=== PATIENT | female | born 1960 | race Caucasian/White ===

== ENCOUNTER 2016-09-01 16:52 | Emergency (ER) | payer OTHER ==
[~2016-09-01] VITALS: Ht 172.7 cm; Wt 90.7 kg
[2016-09-01 17:00] VITALS: BP 115/76
[2016-09-01] MEDS ORDERED: AMOX875T PO (18:04)
[2016-09-01] MEDS ORDERED: ALBU18HF IH (18:04)
[2016-09-01] MEDS ORDERED: GUAI118L13 PO (18:04)
[2016-09-01] MEDS ORDERED: PRED20TA PO (18:04)
--- NOTE | 2016-09-01 18:07 | PHYS DOC ---
General Chief Complaint: COUGH Stated Complaint: COUGH Time Seen by MD: 18:02 Source: patient Exam Limitations: no limitations Problems: History of Present Illness Initial Comments Pt is 55/F to ED c/o one week cough (yellow), green/nasal disch, facial pain/ pressure, scratchy throat, chest/abdominal muscle soreness from coughing. States cough keeps her up at night, nearly coughs to emesis. No measured fevers , no actual cp/sob/quinones, pt is a smoker but has cut down with recent symptoms. OTC meds not helping, no other prearrival treatment sought. Timing/Duration: 1 week Severity: moderate Modifying Factors: improves with other Associated Symptoms: cough, headaches, other Past Medical History Medical History: no pertinent history Surgical History: noncontributory Social History Smoker: cigarettes Alcohol: occasionally Drugs: none Review of Systems Constitutional: denies chills, denies diaphoresis, denies fever, denies malaise EENTM: see HPIdenies eye pain, denies ear pain, denies ear discharge Respiratory: coughdenies shortness of breath, denies wheezing Cardiovascular: denies chest pain, denies palpitations, denies syncope Gastrointestinal: denies abdominal pain, denies nausea, denies vomiting Genitourinary: denies dysuria, denies frequency, denies hematuria Musculoskeletal: see HPIdenies back pain, denies joint swelling, muscle pain muscle stiffnessdenies neck pain Psychiatric/Neurological: see HPIdenies numbness, denies paresthesia, denies weakness Physical Exam General Appearance: no apparent distress, obese Eyes: bilateral eye EOMI, bilateral eye PERRL, bilateral eye normal inspection Ear, Nose, Throat: hearing grossly normal, other (max sinus TTP with green nasal/PND airway patent) Neck: non-tender, supple Respiratory: normal breath sounds, no respiratory distress Cardiovascular: normal peripheral pulses, regular rate, rhythm Back: no CVA tenderness, no vertebral tenderness Extremities: non-tender, normal inspection Neurologic/Psychiatric: 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 Stop smoking, seek medical assistance if necessary. Aggressive hydration with gatorade, water. Rx: amoxicillin, prednisone, albuterol MDI, guaif/cod syrup Take meds with food. Follow up with your doctor Tuesday if no better. Return to ED with new or changing symptoms. FLORENTIN FORD DO Sep 01, 2016 18:06
== END 2016-09-01 18:23 | disposition home or self-care (01) ==
LOC: ER 16:52
DX: J01.90 Acute sinusitis, unspecified (principal); R51 Headache; F17.210 Nicotine dependence, cigarettes, uncomplicated
CPT/HCPCS: 99283